=== PATIENT | female | born 1965 | race Caucasian/White ===

== ENCOUNTER → 2019-08-02 | Outpatient (CLI) | payer OTHER ==
[2014-08-18 11:08] VITALS: BP 112/62
[~2019-08-02] MED LIST: ATOR20TA PO; CALC-31 PO; ESTR1PAT10 TP; FAMO-63 PO; FLEC50TA PO; HYDR200T71 PO; LINZESS145 MCG PO; METH500T5 PO; MULT-245 PO; NAPR-514 PO; OMEP40CA5 PO; SENN-30 PO
--- NOTE | 2019-08-02 16:56 | KCIC ---
WRIST BILAT 2V, HAND BILAT 2V 08/02/2019 12:00 AM INDICATION: Bilateral hand pain and osteoarthritis. History of scleroderma. COMPARISON: None available. TECHNIQUE: 2 views the right hand, 2 views of the right wrist, 2 views of the left hand and 2 views of the left wrist are provided. FINDINGS: There is no acute fracture or dislocation. Bone mineralization is within normal limits. Joint spaces are maintained. Regional soft tissues are within normal limits. There is no soft tissue gas or osseous erosion. There is bilateral negative ulnar variance. IMPRESSION: No acute fracture or dislocation. Joint spaces are maintained. Bilateral negative ulnar variance. Electronically signed by: Sarahi Pulido MD (08/02/2019 4:53 PM) [facility]
== END | disposition home or self-care (01) ==
LOC: KCIC 15:37
PROVIDERS: ATTEND Family Medicine
DX: M79.641 Pain in right hand (principal); M79.642 Pain in left hand; M19.042 Primary osteoarthritis, left hand; M19.041 Primary osteoarthritis, right hand; Z87.39 Personal history of other diseases of the musculoskeletal system and connective tissue
CPT/HCPCS: 73100; 73120

== ENCOUNTER → 2021-06-26 | Outpatient (CLI) | payer OTHER ==
[2014-08-18 11:08] VITALS: BP 112/62
[~2021-06-26] MED LIST changes: -OMEP40CA5 PO; +OMEP40CA7 PO
--- NOTE | 2021-06-26 10:59 | KCIC ---
EXAM: Bilateral digital screening mammogram with tomosynthesis. HISTORY: 55-year-old female presents for screening mammography. TECHNIQUE: Full-field digital craniocaudal and mediolateral oblique 2D and 3D tomosynthesis images of both breasts are obtained for evaluation. Computer aided detection was applied. COMPARISON: 12/08/2018 BREAST PARENCHYMAL DENSITY: Level C - Heterogeneously dense. FINDINGS: There is no new suspicious mass, microcalcification or region of architectural distortion. IMPRESSION: BI-RADS Category 2: Benign finding(s). RECOMMENDATION: Annual mammography is recommended. If your mammogram demonstrates that you have dense breast tissue, which could hide abnormalities, and if you have other risk factors for breast cancer that have been identified, you might benefit from s upplemental screening tests that may be suggested by your ordering physician. Dense breast tissue, i n and of itself, is a relatively common condition. This information is not provided to cause undue c oncern, but rather to raise your awareness and to promote discussion with your physician regarding th e presence of other risk factors, in addition to dense breast tissue. A report of your mammography re sults will be sent to you and your physician. You should contact your physician if you have any ques tions or concerns regarding this report. Mammography is a sensitive method for finding small breast cancers, but it does not detect them all a nd is not a substitute for careful clinical examination. A negative mammogram does not negate a clin ically suspicious finding and should not result in delay in biopsying a clinically suspicious abnorma lity. PQRS compliance statement - Patient information was entered into a reminder system with a target due date for the next mammogram. "Our facility is accredited by the [employer] Mammography [employer]." Electronically signed by: Ilene Maciel MD (06/26/2021 10:57 AM) [email or web address]
== END ==
LOC: KCIC MAMMO 09:42
PROVIDERS: ATTEND Obstetrics & Gynecology
DX: Z12.31 Encounter for screening mammogram for malignant neoplasm of breast (principal)
CPT/HCPCS: 77063; 77067